=== PATIENT | female | born 1995 | race Caucasian/White ===

== ENCOUNTER → 2017-01-19 | Outpatient (CLI) | payer MEDICAID ==
[~2017-01-19] MED LIST: GADOBUTROL 10 ML VIAL IVP ONE
== END ==
LOC: FIMAGING 12:42
PROVIDERS: ATTEND Psychiatry & Neurology Neurology
DX: M50.20 Other cervical disc displacement, unspecified cervical region (principal)
CPT/HCPCS: A9585

== ENCOUNTER → 2018-08-24 | Outpatient (CLI) | payer MEDICAID | LOC: EMCIMAGING 12:29 | PROVIDERS: ATTEND Psychiatry & Neurology Neurology | DX: M51.24 Other intervertebral disc displacement, thoracic region (principal); M48.04 Spinal stenosis, thoracic region | CPT/HCPCS: 72146-PN; 72157-PN; 72158-PN ==

== ENCOUNTER → 2018-09-20 | Outpatient (CLI) | payer MEDICAID | LOC: EMCIMAGING 09:04 ==